=== PATIENT | male | born 1940 | race Caucasian/White ===

== ENCOUNTER → 2017-12-23 | Day surgery (SDC) | payer MEDICARE ==
[~2017-12-23] MED LIST: ACETAMINOPHEN 1000 MG/100 ML 100 ML IV ONE; LACTATED RINGER'S 1000 ML INJ 1,000 ML ONE; MIDAZOLAM HCL 2 MG/2 ML VIAL ONE; ONDANSETRON HCL 4 MG/2 ML VIAL IV PUSH ONE; PROPOFOL 200 MG/20 ML AMP IV ONE; ceFAZolin INJ 1,000 MG VIAL ONE
--- NOTE | 2017-12-23 10:34 | TN ---
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 Comodone right lower eyelid. PROCEDURE PERFORMED: Excision of multiple basal cell carcinomas and a comodone. SURGEON: Jv Alexandre MD, FACS ANESTHESIA: LMA, general. I also utilized a total of 20 of a combination of 1% lidocaine with epinephrine mixed with 0.25% Marcaine in a 2:1 ratio. PROCEDURE NOTE: He was properly consented, marked and anesthetized. The skin sterilized with Microcyn and sterile draping applied. Local anesthetic infiltrated. I started the procedure by reflecting the left posterior ear and a wide local excision was carried out to the postauricular area on the upper third of the ear. Wide local excision was carried out resulting in a primary defect of 2 x 2 cm depth including the margins of the tumor. I proceeded an elevated a fasciocutaneous flap with a second defect of 4 x 4 cm. It was rotated into the defect and inset utilizing a combination of 3-0 Monocryl suture and 3-0 Prolene. The donor site was closed utilizing the same suture material. Attention was directed to the left ear on the prelobular sulcus lesion where the basal carcinoma was properly widely excised. Resulting in a primary defect including the margins of 1.5 cm in diameter. I did a tissue rearrangement by freeing up of the lobular skin and rotated it into the defect for a second defect of 2.5 x 1.5 cm. Suture utilized was 5-0 Monocryl suture and 5-0 fast absorbing gut. Attention was directed to the nasal tip where the lesion was carried out including the margins. The primary defect was 1.5 x 1 cm. This required a tissue rearrangement V-Y flap reconstruction for a secondary defect of 3.5 x 1.5 cm. I utilized the suture material including the 5-0 Monocryl suture and 5-0 fast absorbing gut. Finally, our attention was directed to the left lower lip centrally. A lesion was excised including the margins which resulted in a primary defect of 1.5 x 2 cm. This required tissue rearrangement reconstruction of 5 x 3.2 cm. Undermining was carried out leaving the orbicularis skylar muscle and the vermilion border; however, part of these in the dry to wet lip was excised in order to accomplish an anatomical closure. Sutures utilized here including 3-0 Monocryl suture and a 5 absorbent gut. Each and every one of these lesions were sent to pathology for permanent analysis with at least 0.5-0.8 cm margins. Each and every one of these lesions were dressed after the repair with Dermabond absorbent dressing applied. It is to be mentioned that I also removed a black head off the right lower eyelid of insignificance including the capsule for a lesion of about a 0.25 to a 0.5 cm. This was closed with 5-0 fast absorbing gut for a simple repair. Overall, the patient tolerated the procedure well. He was awakened and extubated in the operating room and transferred back to the Postanesthesia Care Unit in stable condition. There were no complications appreciated. The patient tolerated the procedure fairly well. MD TEJ Doherty/CHIKIS , 10:02 AM , 10:32 AM BOBBI
== END | disposition home or self-care (01) ==
LOC: ESDC 07:17
PROVIDERS: ATTEND Plastic Surgery
DX: C44.311 Basal cell carcinoma of skin of nose (principal); C44.219 Basal cell carcinoma of skin of left ear and external auricular canal; C44.01 Basal cell carcinoma of skin of lip; H02.822 Cysts of right lower eyelid
CPT/HCPCS: 00300; 11440; 11642; 14060; 15733; 88305; J0131; J0690; J2250; J2405; J3010; J7120